=== PATIENT | female | born 1955 | race Caucasian/White ===

== ENCOUNTER 2016-11-05 21:22 | Emergency (ER) | payer OTHER ==
[2016-11-05] MEDS ORDERED: Ciprofloxacin TAB* 500 MG PO ONE (22:54)
[2016-11-05 23:14] VITALS: BP 145/97
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
== END 2016-11-05 23:00 | disposition home or self-care (01) ==
LOC: UCEAST 21:22
DX: N39.0 Urinary tract infection, site not specified (principal); Z87.440 Personal history of urinary (tract) infections; Z88.1 Allergy status to other antibiotic agents; Z88.2 Allergy status to sulfonamides
CPT/HCPCS: 81002; 87086; 99212; A9270-GY; G0463

== ENCOUNTER 2017-12-05 12:09 | Emergency (ER) | payer OTHER ==
[2017-12-05 12:23] VITALS: BP 150/79
[2017-12-05] MEDS ORDERED: Ibuprofen TAB* 400 MG PO ONE (12:30)
[2017-12-05] MEDS ORDERED: Mupirocin 2% CREAM* 15 GM TOPICAL ONE (14:16)
[2017-12-05] MEDS ORDERED: Mupirocin 2% OINT* TUBE TOPICAL ONE ×2 (14:30→14:35)
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
== END 2017-12-05 14:36 | disposition home or self-care (01) ==
LOC: UCEAST 12:09
DX: T23.251A Burn of second degree of right palm, initial encounter (principal); T31.0 Burns involving less than 10% of body surface; X02.0XXA Exposure to flames in controlled fire in building or structure, initial encounter; Y93.9 Activity, unspecified; Y92.9 Unspecified place or not applicable; Z88.1 Allergy status to other antibiotic agents; Z88.2 Allergy status to sulfonamides
CPT/HCPCS: 99213; A9270-GY; G0463

== ENCOUNTER 2019-06-24 15:10 | Emergency (ER) | payer OTHER ==
[2019-06-24 15:27] VITALS: BP 143/86
--- NOTE | 2019-06-24 15:48 | UC ---
Ear Complaint HPI - HPI Summary HPI Summary: Patient is a 63yo female presenting with complaint of "clogged left ear." States she often gets build up of wax and believes she may need the ear irrigated. Denies pain in the ear. Denies right ear symptoms. Denies headache and dizziness. Denies URI symptoms. Denies changes in hearing. Denies fever and chills. Notes she uses drops for itching in her ear because she has psoriasis. Notes some itching today but she is out of the drops. - History of Current Complaint Chief Complaint: UCEar Stated Complaint: LEFT EAR PLUGGED Hx Obtained From: Patient Severity Currently: None Pain Intensity: 0 Pain Scale Used: 0-10 Numeric - Allergies/Home Medications Allergies/Adverse Reactions: Allergies Allergy/AdvReac Type Severity Reaction Status Date / Time eszopiclone [From Lunesta] Allergy "EFFECTS Verified 06/24/19 15:22 ME MENTALLY" erythromycin base AdvReac GI Upset Verified 12/05/17 12:15 sulfamethoxazole AdvReac Abdominal Verified 12/05/17 12:15 [From Bactrim] Pain trimethoprim [From Bactrim] AdvReac Abdominal Verified 12/05/17 12:15 Pain PMH/Surg Hx/FS Hx/Imm Hx - Surgical History Surgical History: Yes Surgery Procedure, Year, and Place: FINGER SURGERY, [place] teeth - Family History Known Family History: Positive: None, Hypertension - father Negative: Cardiac Disease, Diabetes - Social History Alcohol Use: None Alcohol Amount: 1 time a year Substance Use Type: None Smoking Status (MU): Never Smoked Tobacco Have You Smoked in the Last Year: No Review of Systems All Other Systems Reviewed And Are Negative: Yes Constitutional: Positive: Negative Skin: Positive: Other - psoriasis of scalp and ears Eyes: Positive: Negative ENT: Positive: Other - clogged left ear. Negative: Sore Throat, Ear Ache, Nasal Discharge, Sinus Congestion, Sinus Pain/Tenderness Respiratory: Positive: Negative Cardiovascular: Positive: Negative Neurological: Positive: Negative. Negative: Headache Psychological: Positive: Negative Physical Exam Triage Information Reviewed: Yes Appearance: Well-Appearing, No Pain Distress, Well-Nourished Vital Signs: Initial Vital Signs Temp 99.9 F 06/24/19 15:23 Pulse 81 06/24/19 15:23 Resp 18 06/24/19 15:23 BP 143/86 06/24/19 15:23 Pulse Ox 97 06/24/19 15:23 Vital Signs Reviewed: Yes Eyes: Positive: Conjunctiva Clear ENT Exam: Normal ENT: Positive: Hearing grossly normal, Pharynx normal, TMs normal - landmarks intact bilaterally. normal light reflex bilaterally. no cerumen impaction noted in either ear., Uvula midline, Other - EAC normal. Negative: Pharyngeal erythema, Nasal congestion, Nasal drainage, TM bulging, TM dull, TM red, Tonsillar swelling, Tonsillar exudate, Sinus tenderness Neck exam: Normal Neck: Positive: Supple Respiratory Exam: Normal Respiratory: Positive: Lungs clear, Normal breath sounds, No respiratory distress, No accessory muscle use. Negative: Crackles, Rhonchi, Stridor, Wheezing Cardiovascular Exam: Normal Cardiovascular: Positive: RRR Neurological: Positive: Alert Psychological: Positive: Age Appropriate Behavior Skin: Positive: Other - psoriasis noted on scalp and temples Ear Complaint Course/Dx - Course Course Of Treatment: Discussed with patient that there is no cerumen impaction today and TMs are normal. I provided a refill for cortisporin ear drops to alleviate itching from psoriasis in ears. Instructed to follow up with PCP if symptoms persist or worsen. Patient voiced understanding and agreed to treatment plan. - Differential Dx/Diagnosis Provider Diagnosis: Itching of ear Discharge ED - Sign-Out/Discharge Documenting (check all that apply): Patient Departure All imaging exams completed and their final reports reviewed: No Studies - Discharge Plan Condition: Stable Disposition: HOME Prescriptions: Neomyc/Polym/HC 1% OTIC SUSP* [Cortisporin Otic Susp 1%*] 4 drop BOTH EARS QID PRN #1 [id number] PRN Reason: Itching Referrals: Misty Anaya MD [Primary Care Provider] - If Needed Additional Instructions: As discussed, your ears were free of wax today and your eardrums looked normal. You may continue to use your ear drops as prescribed for the itching in your ears. Follow up with your PCP if your symptoms persist or worsen. - Billing Disposition and Condition Condition: STABLE Disposition: Home - Attestation Statements Provider Attestation: Per institutional requirements, I have reviewed the chart, however, I was not consulted specifically or made aware of this patient by the midlevel provider. I did not personally evaluate, interact with , or disposition this patient.
== END 2019-06-24 16:03 | disposition home or self-care (01) ==
LOC: UCEAST 15:10
DX: H93.92 Unspecified disorder of left ear (principal); Z88.2 Allergy status to sulfonamides; Z88.1 Allergy status to other antibiotic agents; Z88.8 Allergy status to other drugs, medicaments and biological substances
CPT/HCPCS: 99212; G0463